=== PATIENT | male | born 1960 | race Caucasian/White ===

== ENCOUNTER → 2023-11-07 16:23 | Outpatient (CLI) | payer OTHER, SELFPAY ==
[2023-11-11 07:09] LABS: PSA Free % 13.7 % (.); PSA, Total 4.3 ng/mL (0.0-4.0)
== END ==
PROVIDERS: PCP Family Medicine; Referring Provider Urology; Visit Provider Urology
DX: R97.20 Elevated prostate specific antigen [PSA] (principal)
CPT/HCPCS: 36415; 84153; 84154

== ENCOUNTER → 2024-09-03 16:34 | Outpatient (CLI) | payer OTHER, SELFPAY | PROVIDERS: PCP Family Medicine; Visit Provider Urology | DX: C61 Malignant neoplasm of prostate (principal); N13.8 Other obstructive and reflux uropathy; R35.1 Nocturia; R39.14 Feeling of incomplete bladder emptying | CPT/HCPCS: 51741; 51798; 52000; 81002; 87086; 99213 ==

== ENCOUNTER → 2024-09-23 16:03 | Outpatient (CLI) | payer OTHER, SELFPAY ==
[2024-09-23 16:30] LABS: Appearance Urine UA CLEAR; Bilirubin Urine UA NEGATIVE (NEGATIVE); Color Urine UA YELLOW; Glucose Urine UA NEGATIVE (Negative); Ketones Urine UA NEGATIVE (NEGATIVE); Leukocyte Esterase Urine UA NEGATIVE (NEGATIVE); Nitrite Urine UA NEGATIVE (Negative); Occult Blood Urine UA NEGATIVE (Negative); Protein Urine UA 1+ (Negative); Specific Gravity Urine UA 1.020 (1.000-1.035); Urobilinogen Urine UA 0.2 E.U./dL (0.2); pH Urine UA 6.0 (4.5-8.0)
[2024-09-23 16:36] LABS: Culture Indicated Urine Cult Not Indicated
== END ==
PROVIDERS: PCP Family Medicine; Visit Provider Urology
DX: R39.9 Unspecified symptoms and signs involving the genitourinary system (principal)
CPT/HCPCS: 81001

== ENCOUNTER 2024-10-05 09:05 | Day surgery (SDC) | payer OTHER, SELFPAY ==
[2024-09-29 13:54] VITALS: BMI 30.7
--- NOTE | 2024-10-05 | PATH_ITS ---
[facility] Accession Number: [id number] No. of containers..01 Tissue . 01 Material submitted: . prostate - PROSTATE CHIPS . 01 Clinical history: . UROLOGIST: CARMEN PURETT VANDEN, BERG . 01 Diagnosis: PROSTATE, TURP: Prostatic parenchyma with features consistent with benign prostatic hyperplasia. No evidence of malignancy. MRV 10/14/2024 1417 Local . 01 Electronically signed: . Sung Lima MD, PhD, Pathologist NPI- [id number] . 01 Gross description: . Received in formalin with two identifiers and prostate chips, are multiple charles soft tissue fragments with a small amount of hemorrhagic material weighing 9 grams and aggregating to 6.0 x 5.4 x 1.5 cm. The specimen is submitted entirely in A1-A7. ([id number]) /MRV 10/13/2024 1738 Local . 01 Pathologist provided ICD-10: N40.1 . 01 CPT . 607138 Specimen Comment: A courtesy copy of this report has been sent to [facility] Performed at: [address] [address], [place], [place] [id number] MD Serafin Motta MD Phone: [phone]
[2024-10-05 10:21] VITALS: BP 159/88; PULSE 65; RESP 16; TEMP 36.3; O2SAT 98; BMI 30.7
[2024-10-05] MEDS: LACTATED RINGERS 1,000 ML 21 ML IV (10:38)
--- NOTE | 2024-10-05 11:27 | PM.PREOP ---
Pre-operative Note COVID-19 COVID-19 status: Not tested Interval Note History & Physical reviewed/Exam performed by Physician: Yes Changes to H&P: No
[2024-10-05] MEDS: levoFLOXacin 500 MG/100 ML PIGGYBACK 100 MG IV (11:50)
--- NOTE | 2024-10-05 12:16 | SUR.OPER ---
Lithotomy on padded OR bed, head on pillow, arms secured on padded arm boards at <90 degrees abduction. Legs secured in padded yellow fins stirrups.
[2024-10-05 13:25] VITALS: BP 111/59; PULSE 85; RESP 18; TEMP 36.2; O2SAT 95
--- NOTE | 2024-10-05 13:29 | PM.OP.1 ---
Operative Date/Time/Diagnoses Date of procedure: 10/05/24 Time of procedure: 12:15 Pre-op diagnosis: Benign prostatic hyperplasia, prostate cancer Post-op diagnosis: same Procedure & Clinicians Procedure: Cystoscopy Transurethral resection of prostate Same procedure(s) as scheduled: Yes Indications: 64 y/o M noted to have symptoms consistent with BPH w/ LUTS that are currently managed w/ Tamsulosin 0.8mg daily. Discussed treatment options to include observation vs the possible addition of Finasteride 5mg daily (discussed possible side effects to include decreased libido, worsening erectile dysfunction, loss of ejaculate volume as well as painful breast development or nipple tenderness), or a lower urinary tract evaluation prior to a bladder outlet procedure. Discussed that his cystoscopy was notable for coaptating lateral prostatic lobes with a moderate sized intravesical median lobe and he had a previous prostate MRI consistent with a 56g gland. Discussed that he otherwise would be a candidate for a transurethral resection of his prostate (cannot have Aquablation performed secondary to his prostate cancer). Discussed risks of the procedure to include but not limited to pain, bleeding, infection, injury to urethra/bladder/either ureteral orifice, clot retention, irritative voiding symptoms for several months following the procedure, urinary incontinence, erectile dysfunction, retrograde ejaculation, need for open emergent repair of any bladder or ureteral injuries, urethral stricture or bladder neck contracture development, need for repeat procedures. Surgeon: Woo Allen Click Yes if Unassisted: Yes Anesthesia Type: General Operative Notes Findings: Coaptating lateral prostatic lobes, moderate sized intravesical median lobe Closure Type: not applicable Specimen(s): other (prostate chips) Applied: catheter Estimated Blood Loss (mL): 20 Blood products transfused: none Procedure in detail: Patient was identified in the preoperative holding area and consent confirmed. He was then brought to the operating room where general anesthesia was induced. He was then placed in the low lithotomy position. He was then prepped and draped in the usual sterile fashion. A surgical timeout was conducted and all were in agreement. Access to the bladder was obtained via a 21Fr cystoscope. Complete cystoscopy was then performed using a 30 and 70 degree lens. Bilateral ureteral orifice were easily visualized and noted to be orthotopic in nature. He had grade 2 trabeculations throughout his bladder, no concerning masses or lesions were appreciated. The cystoscope was then removed and his urethral meatus was serially dilated from 24Fr to 30Fr using Andres sounds. The 26Fr resectoscope with visual obturator was then advanced through his urethra and into his bladder. The working element with Gyrus loop was then assembled and passed through the resectoscope and into the bladder. A channel was created from the 5 o'clock position at the level of the bladder neck to a level just immediately proximal to the verumontanum with a depth of the prostatic capsule. This was repeated in similar fashion at the 7 o'clock position. The median lobe, left lateral lobe and right lateral lobe were then completely resected to the level of the prostatic capsule. All prostate specimens were then manually evacuated from the bladder using the resectoscope. Hemostasis was evaluated and noted to be excellent at case end. A 24Fr 3-way hematuria catheter was then inserted into his bladder, 45cc of sterile water was utilized for balloon insufflation. Continuous bladder irrigation was then initiated and it was noted to be clear. Anesthesia was reversed, he was extubated in the OR and transferred to the PACU in stable condition for recovery. Complications: none Post-operative Condition: stable Disposition: PACU Plan for aftercare: Will continue to run CBI for a few hours to evaluate the efflux from his catheter.? Should it remain relatively clear and with minimal blood clots, will discharge home with catheter in place and have him return to Urology clinic in 2 days for a voiding trial.? Should his efflux remain red or have significant clot burden, will admit overnight for observation and continued CBI.
[2024-10-05 13:30] VITALS: BP 118/60; PULSE 80; RESP 12; TEMP 36.2; O2SAT 96
[2024-10-05 13:42] VITALS: BP 118/68; PULSE 81; RESP 15; TEMP 36.2; O2SAT 98
[2024-10-05] MEDS: OXYBUTYNIN 5 MG TABLET PO (14:58)
[2024-10-05] MEDS: PHENAZOPYRIDINE 100 MG TABLET 200 MG PO (14:59)
[2024-10-05] MEDS: OXYCODONE IR 5 MG TABLET PO ×2 (15:55→17:09)
[2024-10-05 17:02] VITALS: BP 123/71; PULSE 71; RESP 14; TEMP 36.1; O2SAT 98
== END 2024-10-05 17:50 | disposition home or self-care (01) ==
PROVIDERS: PCP Family Medicine; Referring Provider Urology; Visit Provider Urology
PROC: 0VT08ZZ Resection of Prostate, Via Natural or Artificial Opening Endoscopic (ICD-10-PCS; CPT 52601; principal; 2024-10-05 11:45)
DX: N40.1 Benign prostatic hyperplasia with lower urinary tract symptoms (principal); C61 Malignant neoplasm of prostate; R35.1 Nocturia; R33.8 Other retention of urine; I10 Essential (primary) hypertension; K21.9 Gastro-esophageal reflux disease without esophagitis
CPT/HCPCS: 52601; J1100; J1956; J2405; J2704; J3010

== ENCOUNTER → 2024-10-07 14:59 | Outpatient (CLI) | payer OTHER, SELFPAY | PROVIDERS: PCP Family Medicine; Visit Provider Urology | DX: N40.1 Benign prostatic hyperplasia with lower urinary tract symptoms (principal); N13.8 Other obstructive and reflux uropathy | CPT/HCPCS: 87086 ==

== ENCOUNTER → 2025-02-07 16:28 | Outpatient (CLI) | payer OTHER, SELFPAY ==
[2025-02-07 18:43] LABS: Prostate Specific Antigen 5.08 ng/mL (0.10-4.00)
== END ==
PROVIDERS: Referring Provider Urology; Visit Provider Urology
DX: C61 Malignant neoplasm of prostate (principal); N13.8 Other obstructive and reflux uropathy; N40.1 Benign prostatic hyperplasia with lower urinary tract symptoms
CPT/HCPCS: 36415; 84153